=== PATIENT | female | born 1970 | race Two or more races ===

== ENCOUNTER 2025-05-16 09:17 | Day surgery (SDC) | payer OTHER, SELFPAY | END 2025-05-16 13:06 | disposition home or self-care (01) | LOC: CATH 09:17 | PROVIDERS: ATTENDING PHYSICIAN Internal Medicine Interventional Cardiology; FAMILY PHYSICIAN Family Medicine | DX: I12.9 Hypertensive chronic kidney disease with stage 1 through stage 4 chronic kidney disease, or unspecified chronic kidney disease (principal); N18.9 Chronic kidney disease, unspecified; I48.0 Paroxysmal atrial fibrillation; Z79.01 Long term (current) use of anticoagulants | CPT/HCPCS: 92960; 93005 ==